=== PATIENT | female | born 2005 | race Caucasian/White ===

== ENCOUNTER 2025-02-04 23:11 | Emergency (ER) | payer OTHER ==
[~2025-02-04] VITALS: Ht 152.4 cm; Wt 47.3 kg
[~2025-02-04 23:11] MED LIST: ACET-3685
[2025-02-04 23:16] VITALS: TEMP 98.4
[2025-02-05 01:52] LABS: APPEARANCE,URINE CLEAR (CLEAR); BILIRUBIN,URINE NEGATIVE (NEGATIVE); COLOR,URINE LIGHT YELLOW (YELLOW); GLUCOSE, URINE (UA) NEGATIVE (NEGATIVE); KETONES,URINE NEGATIVE (NEGATIVE); LEUKOCYTE ESTERASE ,URINE SMALL (NEGATIVE); NITRATE,URINE NEGATIVE (NEGATIVE); OCCULT BLOOD,URINE NEGATIVE (NEGATIVE); PH,URINE 6.5 (5.0-8.0); PROTEIN,URINE NEGATIVE (NEGATIVE); SPECIFIC GRAVITIY, URINE 1.017 (1.003-1.030); UROBILINOGEN,URINE <=1.0 mg/dL (<=1.0)
[2025-02-05 01:55] LABS: HCG,QUAL URINE NEGATIVE (NEGATIVE)
[2025-02-05 01:59] LABS: BACTERIA,URINE None Seen /HPF (None Seen); RBC,URINE None Seen /HPF (0-2); SQUAMOUS EPITHELIAL CELL,UR Few /LPF (None Seen); WBC,URINE 0-2 /HPF (0-5)
[2025-02-05] MEDS: LIDOCAINE/PF 1% 2 ML VIAL IM ONE (02:08)
[2025-02-05] MEDS: AZITHROMYCIN 500 MG TABLET PO ONE (02:09)
[2025-02-05] MEDS: CefTRIAXone SODIUM 1 GM/VIAL IM ONE (02:09)
[2025-02-05] MEDS ORDERED: MICO45CR76 VG (02:46)
[2025-02-05] MEDS ORDERED: DOXY-354 PO (02:46)
[2025-02-05 02:53] VITALS: BP 134/74; PULSE 88; RESP 20; O2SAT 100
== END 2025-02-05 02:58 | disposition home or self-care (01) ==
LOC: EMS 23:13
DX: N34.2 Other urethritis (principal)
CPT/HCPCS: 99283; 81001; 84703; 87491; 87591; 96372; J0456; J0696; J3490